=== PATIENT | male | born 2000 | race Caucasian/White ===

== ENCOUNTER 2024-06-09 01:22 | Emergency (ER) | payer SELFPAY ==
[2024-06-09] MEDS ORDERED: Lidocaine/Transparent Dressing 1 EACH KIT ONE (03:00)
[2024-06-09] MEDS ORDERED: TETANUS, DIPHTHERIA TOX,ADULT (TDVAX) 0.5 ML VIAL IM ONE (03:12)
== END 2024-06-09 03:49 | disposition home or self-care (01) ==
LOC: ERS 01:22
DX: S01.01XA Laceration without foreign body of scalp, initial encounter (principal); Z23 Encounter for immunization; W18.09XA Striking against other object with subsequent fall, initial encounter
CPT/HCPCS: 12002; 36416; 70450; 72125; 90471; 90714